=== PATIENT | female | born 2000 | race Caucasian/White ===

== ENCOUNTER 2019-11-10 05:28 | Inpatient (IN) | payer SELFPAY ==
[~2019-11-10] VITALS: Ht 157.5 cm; Wt 50.8 kg
[2019-11-10] MEDS ORDERED: IV NORMAL SALINE 1000ML BAG 1,000 ML IV SCH (05:45)
--- NOTE | 2019-11-10 05:55 | PHYS DOC ---
Past Medical History Past Medical History: Depression (CRISS GHOSH MD) Drug Use: Marijuana (CRISS GHOSH MD) General Adult EDM: Chief Complaint: SUICDAL IDEATION HPI: HPI: 19-year-old female who took half a bottle of Prozac approximately 1-1/2 hours prior to arrival. Patient says she is depressed with plan to overdose. Patient denies any physical complaints. Patient denies pain at this time. Patient denies fever, chills, cough, vomiting, diarrhea. Patient denies taking any other substances tonight. (CRISS GHOSH MD) Review of Systems: Review of Systems: Constitutional: Denies fever or chills. [] Eyes: Denies change in visual acuity. [] HENT: Denies nasal congestion or sore throat. [] Respiratory: Denies cough or shortness of breath. [] Cardiovascular: Denies chest pain or edema. [] GI: Denies abdominal pain, nausea, vomiting, bloody stools or diarrhea. [] : Denies dysuria. [] Musculoskeletal: Denies back pain or joint pain. [] Integument: Denies rash. [] Neurologic: Denies headache, focal weakness or sensory changes. [] Endocrine: Denies polyuria or polydipsia. [] Lymphatic: Denies swollen glands. [] Psychiatric: Endorses depression (CRISS GHOSH MD) Heart Score: Risk Factors: Risk Factors: DM, Current or recent (<one month) smoker, HTN, HLP, family history of CAD, obesity. Risk Scores: Score 0 - 3: 2.5% MACE over next 6 weeks - Discharge Home Score 4 - 6: 20.3% MACE over next 6 weeks - Admit for Clinical Observation Score 7 - 10: 72.7% MACE over next 6 weeks - Early Invasive Strategies (CRISS GHOSH MD) Current Medications: Current Medications Medications (Trade) Dose Ordered Sig/Cynthia Start Time Stop Time Status Last Admin Dose Admin Sodium Chloride 1,000 ml @ 1,000 mls/hr Q1H 11/10/19 05:45 11/10/19 06:44 UNV (CRISS GHOSH MD) Physical Exam: PE: Constitutional: Well developed, well nourished, no acute distress, non-toxic appearance. [] HENT: Normocephalic, atraumatic, bilateral external ears normal, oropharynx moist, no oral exudates, nose normal. [] Eyes: PERRLA, EOMI, conjunctiva normal, no discharge. [] Neck: Normal range of motion, no tenderness, supple, no stridor. [] Cardiovascular:Heart rate regular rhythm, Lungs & Thorax: No respiratory distress Abdomen: Bowel sounds normal, soft, no tenderness, no masses, no pulsatile masses. [] Skin: Warm, dry, no erythema, no rash. [] Back: No tenderness, no CVA tenderness. [] Extremities: No tenderness, no cyanosis, no clubbing, ROM intact, no edema. [] Neurologic: Alert and oriented X 3, normal motor function, normal sensory function, no focal deficits noted. [] Psychologic: Depressed mood flat affect (CRISS GHOSH MD) EKG: EKG: [] (CRISS GHOSH MD) EKG: EKG: Sinus tachycardia rate of [address]-T changes QT normal (MARIANNE RAJAN DO) Radiology/Procedures: Radiology/Procedures: [] (CRISS GHOSH MD) Course & Med Decision Making: Course & Med Decision Making Pertinent Labs and Imaging studies reviewed. (See chart for details) [] Patient seen on arrival by me. Toxicology work-up ordered and care will be signed out to Dr. Sullivan with labs and psychiatric assessment and disposition pending (CRISS GHOSH MD) Course & Med Decision Making ED course: Evaluation reveals a 19-year-old patient who presented after a suicide attempt. She apparently took half a bottle of selective serotonin reuptake inhibitors. EKG and initial lab testing were unremarkable however she will need serial EKGs and close telemetry monitoring. We will get the psychiatric assessment team to evaluate her but the patient will need to be admitted to observation status. She currently has a one-on-one sitter (MARIANNE RAJAN DO) Dragon Disclaimer: Dragon Disclaimer: This electronic medical record was generated, in whole or in part, using a voice recognition dictation system. (CRISS GHOSH MD) Departure Departure Impression: Primary Impression: Depression Qualified Codes: F32.2 - Major depressive disorder, single episode, severe without psychotic features Additional Impressions: Overdose of antidepressant Qualified Codes: T43.202A - Poisoning by unspecified antidepressants, intentional self-harm, initial encounter Suicide attempt Disposition: 09 ADMITTED INPATIENT Admitting Physician: SHWETA (MARIANNE RAJAN DO) Condition: STABLE Justicifation of Admission Dx: Justifications for Admission: Justification of Admission Dx: N/A (CRISS GHOSH MD) CRISS GHOSH MD Nov 10, 2019 05:55 MARIANNE RAJAN DO Nov 10, 2019 09:28
[2019-11-10 06:12] LABS: BASO % 0 % (0-3); EOS # 0.2 x10^3/uL (0.0-0.7); EOS % 3 % (0-3); HEMATOCRIT 36.3 % (36.0-47.0); HEMOGLOBIN 11.9 g/dL (12.0-15.5); LYMPH # 2.2 x10^3/uL (1.0-4.8); LYMPH % 29 % (24-48); MEAN CORPUSCULAR HEMOGLOBIN 26 pg (25-35); MEAN CORPUSCULAR HGB CONC 33 g/dL (31-37); MEAN CORPUSCULAR VOLUME 80 fL (79-100); MONO # 0.5 x10^3/uL (0.0-1.1); MONO % 7 % (0-9); NEUT # 4.5 x10^3/uL (1.8-7.7); NEUT % 61 % (31-73); PLATELET COUNT 258 x10^3/uL (140-400); RED BLOOD COUNT 4.53 x10^6/uL (3.50-5.40); RED CELL DISTRIBUTION WIDTH 14.9 % (11.5-14.5); WHITE BLOOD COUNT 7.4 x10^3/uL (4.0-11.0)
[2019-11-10 06:24] LABS: AMPHETAMINE/METHAMPHETAMINE NEG (NEG); BARBITURATES NEG (NEG); BENZODIAZEPINES NEG (NEG); CANNABINOIDS NEG (NEG); COCAINE NEG (NEG); METHADONE NEG (NEG); OPIATES NEG (NEG); PHENCYCLIDINE NEG (NEG)
[2019-11-10 06:26] LABS: ALBUMIN 3.9 g/dL (3.4-5.0); CALCIUM 8.8 mg/dL (8.5-10.1); CREATININE 0.8 mg/dL (0.6-1.0); GFR 91.4; POTASSIUM 4.1 mmol/L (3.5-5.1); TOTAL BILIRUBIN 0.3 mg/dL (0.2-1.0)
[2019-11-10] MEDS: IV NORMAL SALINE 1000ML BAG 1,000 ML IV SCH ×2 (08:39→16:39)
[2019-11-10 09:27] LABS: ACETAMIN < 2 mcg/ml (10-30); SALIC < 2.8 mg/dL (2.8-20.0)
--- NOTE | 2019-11-10 14:54 | PDOC1 ---
History and Physical Date of Admission: Date of Admission DATE: 11/10/19 TIME: 14:47 Chief Complaint: Chief Complain: "Took a whole bottle of Prozac to kill myself" History of Present Illness: HPI: 19-year-old female who took half a bottle of Prozac approximately 1-1/2 hours prior to arrival. Patient states that she pulled over when she was driving but she did not count how many pills she took. EMS reports patient got into fight with her dad and took a bottle of Prozac to kill herself. Patient states that she has been depressed and trying to kill her self since June and also last year as well. Patient denies any physical complaints. Patient denies pain at this time. Patient denies fever, chills, cough, vomiting, diarrhea. Patient denies taking any other substances tonight. Past Medical/Surgical History: PMH/PSH: Depression, borderline disorder Allergies: Allergies: Coded Allergies: No Known Drug Allergies (Unverified , 11/10/19) Family History: Family History: None Social History: Social History: Denies alcohol, tobacco, or drug abuse Current Medications: Current Medications Current Medications Sodium Chloride 1,000 ml @ 1,000 mls/hr Q1H IV Last administered on 11/10/19at 06:01; Start 11/10/19 at 05:45; Stop 11/10/19 at 06:44; Status DC Sodium Chloride 1,000 ml @ 125 mls/hr Q8H IV Last administered on 11/10/19at 08:39; Start 11/10/19 at 08:39; Stop 11/11/19 at 08:38 ROS: Review of Systems Review of System REVIEW OF SYSTEMS: GENERAL: Denies weakness SKIN: No bruising, hair changes or rashes. EYES: No blurred, double or loss of vision. NOSE AND THROAT: No history of nosebleeds, hoarseness or sore throat. HEART: No history of palpitations, chest pain or shortness of breath on exertion. LUNGS: Denies cough, hemoptysis, wheezing or shortness of breath. GASTROINTESTINAL: Denies changes in appetite, nausea, vomiting, diarrhea or constipation. GENITOURINARY: No history of frequency, urgency, hesitancy or nocturia. NEUROLOGIC: Denies history of numbness, tingling, or tremor. PSYCHIATRIC: No history of panic, anxiety or depression. ENDOCRINE: No history of heat or cold intolerance, polyuria or polydipsia. EXTREMITIES: Denies joint pain, pain on walking or stiffness. Physical Exam: Vital Signs: Vital Signs Date Time Temp Pulse Resp B/P (MAP) Pulse Ox O2 Delivery O2 Flow Rate FiO2 11/10/19 14:31 86 13 102/63 (76) 99 Room Air 11/10/19 05:50 98.2 98.2 Physcial Exam: GEN: No apparent distress. Alert and oriented HEENT: Normal cephalic, atraumatic, external auditory canals are patent EYES: Extraocular muscles are intact, pupil are equally round and reactive to light and accommodation MUSCULOSKELETAL: Well developed , well nourished, good range of motion ENDOCRINE: No thyromegaly was palpated LYMPHATICS: No cervical chain or axillary nodes were noted HEMATOPOIETIC: No bruising NECK: Supple, no JVD, no thyromegaly was noted LUNGS: Clear to auscultation in all lung montero without rhonchi or wheezing HEART: RRR, S!, S2 present. Peripheral pulses intact, no obvious murmurs noted ABDOMEN: Soft, nontender. Positive bowel sounds, no organomegaly, normal bowel sounds EXTREMITIES: Without clubbing, cyanosis, or edema. Pedal pulses intact. Negative Homans sign NEUROLOGIC: Normal speech and tone. A&O x 3, moves all extremities, no obvious focal deficits PSYCHIATRIC: Normal affect, normal mood. Stable SKIN: No ulcerations or rashes, good skin turgor, no jaundice VASCULAR: Good capillary refill, neurovascular bundle appears to be intact Labs: Labs: Laboratory Tests Test 11/10/19 05:47 11/10/19 05:50 11/10/19 06:08 Magnesium Level 2.1 mg/dL (1.8-2.4) White Blood Count 7.4 x10^3/uL (4.0-11.0) Red Blood Count 4.53 x10^6/uL (3.50-5.40) Hemoglobin 11.9 g/dL (12.0-15.5) Hematocrit 36.3 % (36.0-47.0) Mean Corpuscular Volume 80 fL (79-100) Mean Corpuscular Hemoglobin 26 pg (25-35) Mean Corpuscular Hemoglobin Concent 33 g/dL (31-37) Red Cell Distribution Width 14.9 % (11.5-14.5) Platelet Count 258 x10^3/uL (140-400) Neutrophils (%) (Auto) 61 % (31-73) Lymphocytes (%) (Auto) 29 % (24-48) Monocytes (%) (Auto) 7 % (0-9) Eosinophils (%) (Auto) 3 % (0-3) Basophils (%) (Auto) 0 % (0-3) Neutrophils # (Auto) 4.5 x10^3/uL (1.8-7.7) Lymphocytes # (Auto) 2.2 x10^3/uL (1.0-4.8) Monocytes # (Auto) 0.5 x10^3/uL (0.0-1.1) Eosinophils # (Auto) 0.2 x10^3/uL (0.0-0.7) Basophils # (Auto) 0.0 x10^3/uL (0.0-0.2) Sodium Level 140 mmol/L (136-145) Potassium Level 4.1 mmol/L (3.5-5.1) Chloride Level 105 mmol/L (98-107) Carbon Dioxide Level 27 mmol/L (21-32) Anion Gap 8 (6-14) Blood Urea Nitrogen 15 mg/dL (7-20) Creatinine 0.8 mg/dL (0.6-1.0) Estimated GFR (Cockcroft-Gault) 91.4 BUN/Creatinine Ratio 19 (6-20) Glucose Level 103 mg/dL (70-99) Calcium Level 8.8 mg/dL (8.5-10.1) Total Bilirubin 0.3 mg/dL (0.2-1.0) Aspartate Amino Transf (AST/SGOT) 20 U/L (15-37) Alanine Aminotransferase (ALT/SGPT) 16 U/L (14-59) Alkaline Phosphatase 48 U/L (46-116) Total Protein 8.0 g/dL (6.4-8.2) Albumin 3.9 g/dL (3.4-5.0) Albumin/Globulin Ratio 1.0 (1.0-1.7) Salicylates Level < 2.8 mg/dL (2.8-20.0) Salicylate Last Dose Date Unknown Salicylate Last Dose Time Unknown Urine Opiates Screen Neg (NEG) Urine Methadone Screen Neg (NEG) Acetaminophen Level < 2 mcg/ml (10-30) Acetaminophen Last Dose Date Unknown Acetaminophen Last Dose Time Unknown Urine Barbiturates Neg (NEG) Urine Phencyclidine Screen Neg (NEG) Urine Amphetamine/Methamphetamine Neg (NEG) Urine Benzodiazepines Screen Neg (NEG) Urine Cocaine Screen Neg (NEG) Urine Cannabinoids Screen Neg (NEG) Ethyl Alcohol Level < 10 mg/dL (0-10) Urine Ethyl Alcohol Neg (NEG) Bedside Urine HCG, Qualitative Hcg negative (Negative) Laboratory Tests Test 11/10/19 05:47 11/10/19 05:50 11/10/19 06:08 Magnesium Level 2.1 mg/dL (1.8-2.4) White Blood Count 7.4 x10^3/uL (4.0-11.0) Red Blood Count 4.53 x10^6/uL (3.50-5.40) Hemoglobin 11.9 g/dL (12.0-15.5) Hematocrit 36.3 % (36.0-47.0) Mean Corpuscular Volume 80 fL (79-100) Mean Corpuscular Hemoglobin 26 pg (25-35) Mean Corpuscular Hemoglobin Concent 33 g/dL (31-37) Red Cell Distribution Width 14.9 % (11.5-14.5) Platelet Count 258 x10^3/uL (140-400) Neutrophils (%) (Auto) 61 % (31-73) Lymphocytes (%) (Auto) 29 % (24-48) Monocytes (%) (Auto) 7 % (0-9) Eosinophils (%) (Auto) 3 % (0-3) Basophils (%) (Auto) 0 % (0-3) Neutrophils # (Auto) 4.5 x10^3/uL (1.8-7.7) Lymphocytes # (Auto) 2.2 x10^3/uL (1.0-4.8) Monocytes # (Auto) 0.5 x10^3/uL (0.0-1.1) Eosinophils # (Auto) 0.2 x10^3/uL (0.0-0.7) Basophils # (Auto) 0.0 x10^3/uL (0.0-0.2) Sodium Level 140 mmol/L (136-145) Potassium Level 4.1 mmol/L (3.5-5.1) Chloride Level 105 mmol/L (98-107) Carbon Dioxide Level 27 mmol/L (21-32) Anion Gap 8 (6-14) Blood Urea Nitrogen 15 mg/dL (7-20) Creatinine 0.8 mg/dL (0.6-1.0) Estimated GFR (Cockcroft-Gault) 91.4 BUN/Creatinine Ratio 19 (6-20) Glucose Level 103 mg/dL (70-99) Calcium Level 8.8 mg/dL (8.5-10.1) Total Bilirubin 0.3 mg/dL (0.2-1.0) Aspartate Amino Transf (AST/SGOT) 20 U/L (15-37) Alanine Aminotransferase (ALT/SGPT) 16 U/L (14-59) Alkaline Phosphatase 48 U/L (46-116) Total Protein 8.0 g/dL (6.4-8.2) Albumin 3.9 g/dL (3.4-5.0) Albumin/Globulin Ratio 1.0 (1.0-1.7) Salicylates Level < 2.8 mg/dL (2.8-20.0) Salicylate Last Dose Date Unknown Salicylate Last Dose Time Unknown Urine Opiates Screen Neg (NEG) Urine Methadone Screen Neg (NEG) Acetaminophen Level < 2 mcg/ml (10-30) Acetaminophen Last Dose Date Unknown Acetaminophen Last Dose Time Unknown Urine Barbiturates Neg (NEG) Urine Phencyclidine Screen Neg (NEG) Urine Amphetamine/Methamphetamine Neg (NEG) Urine Benzodiazepines Screen Neg (NEG) Urine Cocaine Screen Neg (NEG) Urine Cannabinoids Screen Neg (NEG) Ethyl Alcohol Level < 10 mg/dL (0-10) Urine Ethyl Alcohol Neg (NEG) Bedside Urine HCG, Qualitative Hcg negative (Negative) Assessment/Plan Assessment/Plan Suicidal attempt SSRI overdose Normocytic anemia Depression Borderline personality disorder Admit for close observation with one-to-one sitter Continue telemetry monitoring for QT prolongation Ativan as needed for seizures and agitation. Psychiatry evaluation Ambulation for DVT prophylaxis Regular diet Full code Discussed with RN Dispo close observation for 24 hours. Pending psych evaluation Justicifation of Admission Dx: Justifications for Admission: Justification of Admission Dx: N/A ALEKSANDRA BURNS MD Nov 10, 2019 14:54
[2019-11-10 20:28] VITALS: BP 144/77
[2019-11-10 22:03] VITALS: BP 117/66
[2019-11-11] MEDS: IV NORMAL SALINE 1000ML BAG 1,000 ML IV SCH (00:25)
[2019-11-11 02:30] VITALS: BP 115/65
[2019-11-11 07:00] VITALS: BP 126/82
[2019-11-11 11:00] VITALS: BP 112/68
--- NOTE | 2019-11-11 11:30 | PDOC ---
PROGRESS NOTES Chief Complaint Chief Complaint ASSESSMENT Suicidal attempt SSRI overdose Normocytic anemia Depression Borderline personality disorder PLAN Psychiatry evaluation pending Ambulation for DVT prophylaxis check iron studies given anemia. patient notes hx of iron def in past Regular diet Full code Discussed with RN suicide precautions PAT consult History of Present Illness History of Present Illness no SI this AM. states lives with boyfriend and his father. notes hx of SI 1 year ago where she was treated as inpatient psych. Vitals Vitals Vital Signs Date Time Temp Pulse Resp B/P (MAP) Pulse Ox O2 Delivery O2 Flow Rate FiO2 11/11/19 11:00 98.0 83 16 112/68 (83) 100 Room Air 98.0 Assessment and Plan Assessmemt and Plan Problems Medical Problems: (1) Depression Status: Acute (2) Overdose of antidepressant Status: Acute (3) Suicide attempt Status: Acute Comment Review of Relevant I have reviewed the following items angelito (where applicable) has been applied. Labs Laboratory Tests Test 11/10/19 05:47 11/10/19 05:50 11/10/19 06:08 Magnesium Level 2.1 mg/dL (1.8-2.4) White Blood Count 7.4 x10^3/uL (4.0-11.0) Red Blood Count 4.53 x10^6/uL (3.50-5.40) Hemoglobin 11.9 g/dL (12.0-15.5) Hematocrit 36.3 % (36.0-47.0) Mean Corpuscular Volume 80 fL (79-100) Mean Corpuscular Hemoglobin 26 pg (25-35) Mean Corpuscular Hemoglobin Concent 33 g/dL (31-37) Red Cell Distribution Width 14.9 % (11.5-14.5) Platelet Count 258 x10^3/uL (140-400) Neutrophils (%) (Auto) 61 % (31-73) Lymphocytes (%) (Auto) 29 % (24-48) Monocytes (%) (Auto) 7 % (0-9) Eosinophils (%) (Auto) 3 % (0-3) Basophils (%) (Auto) 0 % (0-3) Neutrophils # (Auto) 4.5 x10^3/uL (1.8-7.7) Lymphocytes # (Auto) 2.2 x10^3/uL (1.0-4.8) Monocytes # (Auto) 0.5 x10^3/uL (0.0-1.1) Eosinophils # (Auto) 0.2 x10^3/uL (0.0-0.7) Basophils # (Auto) 0.0 x10^3/uL (0.0-0.2) Sodium Level 140 mmol/L (136-145) Potassium Level 4.1 mmol/L (3.5-5.1) Chloride Level 105 mmol/L (98-107) Carbon Dioxide Level 27 mmol/L (21-32) Anion Gap 8 (6-14) Blood Urea Nitrogen 15 mg/dL (7-20) Creatinine 0.8 mg/dL (0.6-1.0) Estimated GFR (Cockcroft-Gault) 91.4 BUN/Creatinine Ratio 19 (6-20) Glucose Level 103 mg/dL (70-99) Calcium Level 8.8 mg/dL (8.5-10.1) Total Bilirubin 0.3 mg/dL (0.2-1.0) Aspartate Amino Transf (AST/SGOT) 20 U/L (15-37) Alanine Aminotransferase (ALT/SGPT) 16 U/L (14-59) Alkaline Phosphatase 48 U/L (46-116) Total Protein 8.0 g/dL (6.4-8.2) Albumin 3.9 g/dL (3.4-5.0) Albumin/Globulin Ratio 1.0 (1.0-1.7) Salicylates Level < 2.8 mg/dL (2.8-20.0) Salicylate Last Dose Date Unknown Salicylate Last Dose Time Unknown Urine Opiates Screen Neg (NEG) Urine Methadone Screen Neg (NEG) Acetaminophen Level < 2 mcg/ml (10-30) Acetaminophen Last Dose Date Unknown Acetaminophen Last Dose Time Unknown Urine Barbiturates Neg (NEG) Urine Phencyclidine Screen Neg (NEG) Urine Amphetamine/Methamphetamine Neg (NEG) Urine Benzodiazepines Screen Neg (NEG) Urine Cocaine Screen Neg (NEG) Urine Cannabinoids Screen Neg (NEG) Ethyl Alcohol Level < 10 mg/dL (0-10) Urine Ethyl Alcohol Neg (NEG) Bedside Urine HCG, Qualitative Hcg negative (Negative) Medications Current Medications Sodium Chloride 1,000 ml @ 1,000 mls/hr Q1H IV Last administered on 11/10/19at 06:01; Start 11/10/19 at 05:45; Stop 11/10/19 at 06:44; Status DC Sodium Chloride 1,000 ml @ 125 mls/hr Q8H IV Last administered on 11/11/19at 00:25; Start 11/10/19 at 08:39; Stop 11/11/19 at 08:38; Status DC Lorazepam (Ativan Inj) 2 mg PRN Q4HRS PRN IVP SEIZURES; Start 11/10/19 at 15:00 Active Scripts Active Reported No Known Medications Prior To Admisstion (Info) Each 1 Each 1X Vitals/I & O Vital Sign - Last 24 Hours 11/10/19 11/10/19 11/10/19 11/10/19 11:30 12:00 12:30 13:00 Pulse 106 92 102 95 Resp 18 18 18 18 B/P (MAP) 110/64 (79) 116/65 (82) 119/69 (86) 115/67 (83) Pulse Ox 99 99 100 99 O2 Delivery Room Air Room Air Room Air Room Air 11/10/19 11/10/19 11/10/19 11/10/19 13:30 14:00 14:31 15:00 Pulse 91 124 86 86 Resp 18 18 13 12 B/P (MAP) 111/68 (82) 113/58 (76) 102/63 (76) 104/52 (69) Pulse Ox 99 100 99 100 O2 Delivery Room Air Room Air Room Air Room Air 11/10/19 11/10/19 11/10/19 11/10/19 15:17 15:30 15:44 16:00 Pulse 79 82 96 119 Resp 13 12 13 B/P (MAP) 110/62 (78) 104/59 (74) 107/56 (73) 100/55 (70) Pulse Ox 99 99 99 100 O2 Delivery Room Air Room Air Room Air 11/10/19 11/10/19 11/10/19 11/10/19 16:30 17:00 17:15 17:30 Pulse 93 87 90 84 Resp 18 13 13 12 B/P (MAP) 110/66 (81) 115/67 (83) 117/65 (82) 114/67 (83) Pulse Ox 100 99 99 99 O2 Delivery Room Air Room Air Room Air Room Air 11/10/19 11/10/19 11/10/19/18/20 17:45 18:00 18:30 18:45 Pulse 78 81 91 94 Resp 13 14 14 14 B/P (MAP) 107/68 (81) 108/63 (78) 104/56 (72) 103/57 (72) Pulse Ox 99 99 99 100 O2 Delivery Room Air Room Air Room Air Room Air 11/10/19 11/10/19 11/10/19 11/10/19 19:00 19:30 20:03 20:28 Temp 97.9 97.9 Pulse 105 116 83 111 Resp 13 14 13 16 B/P (MAP) 112/66 (81) 124/89 (101) 121/71 (88) 144/77 (99) Pulse Ox 100 99 100 99 O2 Delivery Room Air Room Air Room Air Room Air 11/10/19 11/10/19 11/11/19 11/11/19 21:00 22:03 02:30 07:00 Temp 98.0 98.0 98.0 98.0 98.0 98.0 Pulse 81 84 96 Resp 16 16 16 B/P (MAP) 117/66 (83) 115/65 (82) 126/82 (97) Pulse Ox 99 99 99 O2 Delivery Room Air Room Air Room Air Room Air 11/11/19 11/11/19 08:00 11:00 Temp 98.0 98.0 Pulse 83 Resp 16 B/P (MAP) 112/68 (83) Pulse Ox 100 O2 Delivery Room Air Room Air Intake and Output 11/10/19 11/10/19 11/11/19 15:00 23:00 07:00 Intake Total 700 ml Output Total 400 ml Balance 300 ml Justicifation of Admission Dx: Justifications for Admission: Justification of Admission Dx: N/A JOSSELIN GOLDEN MD Nov 11, 2019 11:29
[2019-11-11 15:00] VITALS: BP 112/67
[2019-11-11 18:57] VITALS: BP 118/79
[2019-11-11 23:02] VITALS: BP 120/82
[2019-11-12 02:49] VITALS: BP 108/60
[2019-11-12 07:00] VITALS: BP 122/73
--- NOTE | 2019-11-12 07:57 | EKG ---
[facility] [address] [place] [address] Test Date: 2019-11-10 Test Time: 06:07:00 Pat Name: ROLA ADAME Department: Room: Gender: F Specimen Transporter: LÓPEZ : 2000 Requested By: CRISS GHOSH Order Number: [id number] Reading MD: Measurements Intervals [place] Rate: 105 P: 24 AL: 146 QRS: 45 QRSD: 88 T: 39 QT: 332 QTc: 443 Interpretive Statements SINUS TACHYCARDIA OTHERWISE NORMAL ECG RI6.02 No previous ECG available for comparison
--- NOTE | 2019-11-12 09:13 | NUR ---
left message with Dr. Loomis for a follow up on seeing pt
--- NOTE | 2019-11-12 09:31 | EKG ---
[facility] [address] [place] [address] Test Date: 2019-11-10 Test Time: 12:32:30 Pat Name: ROLA ADAME Department: Room: Gender: F Bookbinder Apprentice: : 2000 Requested By: MARIANNE RAJAN Order Number: [id number] Reading MD: Measurements Intervals [place] Rate: 108 P: 46 [place]: 138 QRS: 45 QRSD: 80 T: 41 QT: 340 QTc: 459 Interpretive Statements SINUS TACHYCARDIA LEFT ATRIAL ABNORMALITY ABNORMAL ECG RI6.02 Compared to ECG 11/10/2019 06:07:00 Atrial abnormality now present
--- NOTE | 2019-11-12 09:40 | EKG ---
[facility] [address] [place] [address] Test Date: 2019-11-10 Test Time: 19:06:06 Pat Name: ROLA ADAME Department: Room: Gender: F Experience Planning Strategist: : 2000 Requested By: MARIANNE RAJAN Order Number: [id number] Reading MD: Measurements Intervals [place] Rate: 109 P: 48 [place]: 114 QRS: 42 QRSD: 94 T: 25 QT: 360 QTc: 486 Interpretive Statements SINUS TACHYCARDIA LEFT ATRIAL ABNORMALITY ABNORMAL ECG RI6.02 Compared to ECG 11/10/2019 12:32:30 No significant changes
[2019-11-12 11:00] VITALS: BP 111/66
--- NOTE | 2019-11-12 12:06 | NUR ---
SS following for discharge planning. SS reviewed pt chart and discussed with pt RN. Pt is from home and is currently on room air. PAT team consulted for overdose. Baltazar from PAT team saw pt in ER yesterday and is seeing today. Per Baltazar, pt was cleared to discharge to home from the PAT team. Pt provided with resources. Psych consult placed and Dr. Loomis to see pt between 1300 and 1400 today. Pt will return to home with boyfriend when ready. Possible discharge to home today. SS will continue to follow for discharge planning.
--- NOTE | 2019-11-12 16:15 | NUR ---
pt is discharged home with self care via ambulation via this RN in stable condition. pt has all belongings with her. pt received discharge instructions and prescriptions and stated she had no further questions for me. Called and notified shirlene from PAT team of pt discharge. pt spoke with Dr. Loomis before discharge and stated there was no firearms in house, and that she was not suicidal and had no plans or thoughts of harming herself. Dr. Loomis spoke with pt boyfriend whom she lives with and he stated he would lock up all medications even OTC meds, would make sure pt remained safe, and also would make sure pt makes it to her scheduled psychiatry appointment on tuesday.
--- NOTE | 2019-11-13 09:09 | DS ---
DATE OF DISCHARGE: 11/12/2019 ADMISSION DIAGNOSIS: Ingestion secondary to depression with suicidal ideation. DISCHARGE DIAGNOSES: Resolving ingestion, resolving acute on chronic depression, and borderline personality disorder. CONSULTS: Psychiatry. PROCEDURES: None. HOSPITAL COURSE: The patient is a pleasant 19-year-old female who presented with an ingestion of Prozac. She had suicidal ideation. She has tried this before. The patient was admitted. We gave her IV fluids and cardiac monitoring. Consulted Psychiatry and the psychiatric assessment team. Yesterday, I saw and examined her and she was denying any suicidal ideation. In fact, really wanted to go home. She wants to go to college and become a nurse. Heart tones were normal. Lungs were clear. Psychiatric team was okay with her going as well. We discharged to home with close outpatient followup. DISPOSITION: Home. ACTIVITY: As tolerated. DIET: Low sodium. MEDICATIONS: I did go ahead and refill her prescription for Prozac because she needed to control her depression. TOTAL TIME: 31 minutes. CARLOS BRUMFIELD DO DR: YOLI/alfredo JOB#: [id number] / [id number]
--- NOTE | 2019-11-14 00:05 | PDOC1 ---
History & Psych Evaluation Date of Admission: Date of Admission DATE: 11/14/19 TIME: 00:05 Current Medications: Current Medications Current Medications Medications (Trade) Dose Ordered Sig/Cynthia Start Time Stop Time Status Last Admin Dose Admin Lorazepam (Ativan Inj) 2 mg PRN Q4HRS PRN 11/10/19 15:00 11/12/19 16:20 DC Sodium Chloride 1,000 ml @ 125 mls/hr Q8H 11/10/19 08:39 11/11/19 08:38 DC 11/11/19 00:25 125 MLS/HR Allergies: Allergies: Coded Allergies: No Known Drug Allergies (Unverified , 11/10/19) ROS: CONSTITUTIONAL: No fever or chills EYES: No recent changes SKIN: No rash or itching CARDIOVASCULAR: No chest pain, syncope, palpitations, or edema RESPIRATORY: No SOB or cough GASTROINTESTINAL: No nausea, vomiting or abdominal pain NEUROLOGICAL: No headaches or weakness ENDOCRINE: No cold or heat intolerance GENITOURINARY: No urgency or frequency of urination MUSCULOSKELETAL: No back pain or joint pain LYMPHATICS: No enlarged lymph nodes PSYCHIATRIC: No anxiety or depression Physical Exam: Refer to Physician's note. PRACTICAL NURSE: No focal deficit MSK: No EPS, TDK, or abnormal involuntary movements TASIA CORREA MD Nov 14, 2019 00:05
== END 2019-11-12 15:58 | disposition home or self-care (01) | DRG 918 ==
LOC: ER 05:28 → ED HOLD 08:15 → 2 NORTH 08:56 → OBSVTOIN 08:56 → 2 NORTH 20:56
PROVIDERS: ADMIT Internal Medicine; ATTEND Internal Medicine
DX: T43.222A Poisoning by selective serotonin reuptake inhibitors, intentional self-harm, initial encounter (principal); D64.9 Anemia, unspecified; F32.9 Major depressive disorder, single episode, unspecified; F60.3 Borderline personality disorder; Z20.828 Contact with and (suspected) exposure to other viral communicable diseases
CPT/HCPCS: 36415; 80053; 80307; 80329; 81025; 83540; 83550; 83735; 85025; 93005; G0379; G0480; J7030; G0378; U0003-CS